=== PATIENT | female | born 1985 | race Caucasian/White ===

== ENCOUNTER 2019-06-05 10:39 | Emergency (ER) | payer OTHER ==
[~2019-06-05] VITALS: Ht 157.5 cm; Wt 77.0 kg
[2019-06-05] MEDS ORDERED: KETOROLAC 30MG/ML VIAL IM ONE (11:15)
[2019-06-05 11:36] LABS: CLARITY URINE CLOUDY (CLEAR); KETONES URINE TRACE (NEGATIVE); LEUKOCYTE ESTERASE URINE 1+ (NEGATIVE); NITRITE URINE NEGATIVE (NEGATIVE); OCCULT BLOOD URINE 3+ (NEGATIVE); PH URINE 5.5 (4.5-8.0); PROTEIN URINE 1+ (NEGATIVE); SPECIFIC GRAVITY URINE 1.021 (1.005-1.030); UROBILINOGEN URINE 0.2 E.U./dL (0.2-1.0)
[2019-06-05 11:39] LABS: COLOR URINE DARK YELLOW (YELLOW)
[2019-06-05] MEDS ORDERED: HYDROCODONE/ACETAMINOPHEN 5/325MG TABLET PO ONE (12:30)
[2019-06-05 13:27] LABS: BASOPHILS % 0.5 % (0.0-2.0); EOSINOPHILS % 0.1 % (0.0-5.0); HEMATOCRIT. 37.5 % (36.0-48.0); HEMOGLOBIN. 12.4 g/dL (12.0-16.0); LYMPHOCYTES % 17.7 % (20.0-50.0); MEAN CORPUSCULAR HEMOGLOBIN 31.1 pg (28.0-32.0); MEAN CORPUSCULAR VOLUME 93.7 fL (81.0-99.0); MEAN PLATELET VOLUME 8.5 fl (7.4-10.4); MONOCYTES % 7.2 % (2.0-8.0); NEUTROPHILS % 74.5 % (40.0-76.0); PLATELET 303 x1000/uL (130-400); RED CELL DISTRIBUTION WIDTH 14.4 % (11.6-14.6)
[2019-06-05 13:33] LABS: CHLORIDE 107 mEq/L (98-107)
[2019-06-05] MEDS ORDERED: CEFTRIAXONE 1 G PREMIX 50 ML IV ONE (14:15)
[2019-06-05] MEDS ORDERED: ONDANSETRON HCL 4MG/2ML INJ IV STA (16:19)
[2019-06-05] MEDS ORDERED: MORPHINE SULFATE 4 MG/ML CPJ (NOT FOR IM USE) IV STA (16:19)
[2019-06-05 17:06] VITALS: BP 131/76
== END 2019-06-05 17:34 | disposition short-term general hospital (02) ==
LOC: ER 10:39
DX: N13.2 Hydronephrosis with renal and ureteral calculous obstruction (principal); K76.0 Fatty (change of) liver, not elsewhere classified; N39.0 Urinary tract infection, site not specified; M06.9 Rheumatoid arthritis, unspecified; M16.0 Bilateral primary osteoarthritis of hip
CPT/HCPCS: 36415; 74176; 80053; 81003; 81025; 83690; 85025; 96372; 96374; 96375; 99285; J0696; J1885; J2270; J2405

== ENCOUNTER 2022-11-10 15:34 | Emergency (ER) | payer OTHER ==
[~2022-11-10] VITALS: Ht 157.5 cm; Wt 81.8 kg
[2022-11-10 15:39] VITALS: BP 146/84; PULSE 96; RESP 16; TEMP 98.3; O2SAT 100
[2022-11-10] MEDS: MORPHINE SULFATE 4 MG/ML CPJ (NOT FOR IM USE) IV STA (16:25)
[2022-11-10] MEDS: ONDANSETRON HCL 4MG/2ML INJ IV STA (16:25)
[2022-11-10] MEDS ORDERED: LIDOCAINE HCL/PF 1% 10 MG/ML 5ML VIAL INFIL ONE (16:30)
[2022-11-10] MEDS ORDERED: BACITRACIN ZINC OINT UDPKT TOP ONE (16:30)
[2022-11-10] MEDS ORDERED: TETANUS, DIPHTHERIA, PERTUSSIS VAC/PF 0.5ML (>10YR OLD) IM ONE (16:30)
[2022-11-10] MEDS ORDERED: CEFAZOLIN 1000MG PREMIX 50 ML IV ONE (17:30)
[2022-11-10] MEDS ORDERED: IBUP-2030 MT (19:48)
[2022-11-10] MEDS ORDERED: CEPH500C2 MT (19:48)
[2022-11-10 20:05] LABS: HCG SCREEN NEGATIVE
== END 2022-11-10 20:20 | disposition home or self-care (01) ==
LOC: ER 15:34
DX: S81.012A Laceration without foreign body, left knee, initial encounter (principal); W18.30XA Fall on same level, unspecified, initial encounter; Y93.9 Activity, unspecified; Y92.89 Other specified places as the place of occurrence of the external cause; Y99.8 Other external cause status
CPT/HCPCS: 84703; 73562; 73700; 12005; 96374; 96375; 99285; J3490; J2405; J2270; Z7610 ×3; C1893; L1830; J0690

== ENCOUNTER 2022-11-24 10:05 | Emergency (ER) | payer OTHER ==
[~2022-11-24] VITALS: Ht 157.5 cm; Wt 72.0 kg
[~2022-11-24 10:05] MED LIST: CEPH500C2 MT; IBUP-2030 MT
[2022-11-24 10:24] VITALS: O2SAT 100
[2022-11-24 12:24] VITALS: BP 127/68; PULSE 73; RESP 20; TEMP 98.8
== END 2022-11-24 12:25 | disposition home or self-care (01) ==
LOC: ER 10:32
DX: S81.012D Laceration without foreign body, left knee, subsequent encounter (principal); X58.XXXD Exposure to other specified factors, subsequent encounter; Z98.890 Other specified postprocedural states; Z48.02 Encounter for removal of sutures
CPT/HCPCS: 99281; Z7610